=== PATIENT | female | born 1995 | race Caucasian/White ===

== ENCOUNTER → 2020-10-06 | Outpatient (CLI) | payer OTHER | LOC: KOH-I 16:30 | DX: I07.9 Rheumatic tricuspid valve disease, unspecified (principal); I26.99 Other pulmonary embolism without acute cor pulmonale; R91.8 Other nonspecific abnormal finding of lung field; J90 Pleural effusion, not elsewhere classified | CPT/HCPCS: 71250 ==

== ENCOUNTER → 2020-10-26 | Outpatient (CLI) | payer OTHER ==
[2020-10-26 18:01] LABS: HEMOGLOBIN 15.3 gm/dl (12.3-15.3); RED BLOOD COUNT 5.39 M/UL (4.00-5.10); WHITE BLOOD COUNT 9.5 K/UL (4.5-11.0)
[2020-10-26 18:16] LABS: BUN/CREATININE RATIO 14 (0-10)
== END ==
LOC: LAB 17:08
PROVIDERS: Hospitalist
DX: N28.9 Disorder of kidney and ureter, unspecified (principal)
CPT/HCPCS: 80069; 81001; 82570; 84156; 85027

== ENCOUNTER → 2020-12-08 | Outpatient (CLI) | payer OTHER ==
[2020-12-08 12:54] LABS: HEMOGLOBIN 17.4 gm/dl (12.3-15.3); RED BLOOD COUNT 5.99 M/UL (4.00-5.10); WHITE BLOOD COUNT 7.4 K/UL (4.5-11.0)
[2020-12-08 13:16] LABS: BUN/CREATININE RATIO 12 (0-10)
== END ==
LOC: LAB 12:16
PROVIDERS: Internal Medicine Nephrology
DX: N28.9 Disorder of kidney and ureter, unspecified (principal)
CPT/HCPCS: 80069; 81001; 82570; 84156; 85027

== ENCOUNTER → 2020-12-17 | Outpatient (CLI) | payer OTHER ==
[2020-12-17 11:36] LABS: BUN/CREATININE RATIO 19 (0-10)
[2020-12-17 11:42] LABS: HEMOGLOBIN 16.3 gm/dl (12.3-15.3); RED BLOOD COUNT 5.55 M/UL (4.00-5.10)
== END ==
LOC: LAB 10:32
PROVIDERS: Family Medicine
DX: K74.60 Unspecified cirrhosis of liver (principal)
CPT/HCPCS: 36415; 80053; 82607; 82746; 83921; 84443; 85027

== ENCOUNTER → 2021-01-14 | Outpatient (CLI) | payer OTHER ==
[2021-01-15 08:14] LABS: ALPHA-1-ANTITRYPSIN, SERUM 171 mg/dL (100-188)
[2021-01-15 11:15] LABS: HBSAG SCREEN Negative (Negative); HEP A AB, IGM Negative (Negative); HEP B CORE AB, IGM Negative (Negative); HEP C VIRUS AB <0.1 (0.0-0.9)
[2021-01-15 14:12] LABS: MITOCHONDRIAL (M2) ANTIBODY <20.0 Units (0.0-20.0)
== END ==
LOC: OPSV 09:35
PROVIDERS: Internal Medicine Gastroenterology
DX: K74.60 Unspecified cirrhosis of liver (principal); R18.8 Other ascites
CPT/HCPCS: 36415; 80074; 80076; 82103; 82728; 83540; 83550; 86038; C1729; P9047

== ENCOUNTER → 2021-04-13 | Outpatient (CLI) | payer OTHER | LOC: EXRD 04-08 09:00 | DX: R18.8 Other ascites (principal); K74.60 Unspecified cirrhosis of liver; R16.1 Splenomegaly, not elsewhere classified | CPT/HCPCS: 76705 ==

== ENCOUNTER → 2021-10-19 | Outpatient (CLI) | payer OTHER | LOC: HEART 5 10:30 | DX: Z95.4 Presence of other heart-valve replacement (principal); I08.3 Combined rheumatic disorders of mitral, aortic and tricuspid valves | CPT/HCPCS: 93306 ==

== ENCOUNTER 2021-11-28 18:05 | Emergency (ER) | payer OTHER ==
[2021-11-28 20:08] LABS: HEMOGLOBIN 14.9 gm/dl (12.3-15.3); RED BLOOD COUNT 5.11 M/UL (4.00-5.10); WHITE BLOOD COUNT 9.1 K/UL (4.5-11.0)
[2021-11-28 20:47] LABS: BUN/CREATININE RATIO 20 (0-10)
== END 2021-11-28 22:10 | disposition home or self-care (01) ==
LOC: ER1 18:05
PROVIDERS: Physician Assistant
DX: R53.83 Other fatigue (principal); F17.290 Nicotine dependence, other tobacco product, uncomplicated; I10 Essential (primary) hypertension; Z20.822 Contact with and (suspected) exposure to COVID-19
CPT/HCPCS: 0240U; 71045; 80053; 80307; 82550; 82553; 83735; 83880; 84439; 84443; 84484; 85025; 85610; 85652; 85730; 86140; 99283

== ENCOUNTER → 2022-01-03 | Outpatient (CLI) | payer OTHER ==
[2022-01-03 16:40] LABS: RED BLOOD COUNT 4.77 M/UL (4.00-5.10); WHITE BLOOD COUNT 10.1 K/UL (4.5-11.0)
== END ==
LOC: LAB 16:12
PROVIDERS: Internal Medicine Gastroenterology
DX: R94.5 Abnormal results of liver function studies (principal)
CPT/HCPCS: 36415; 80076; 85027

== ENCOUNTER → 2022-01-12 | Day surgery (SDC) | payer OTHER ==
[~2022-01-12] MED LIST: ASPIRIN CHEWABL81 MG PO; LOPRESSOR 25 MG25 MG PO; PROTONIX 40 MG40 M1 PO; ROPINIROLE HCL1 MG PO; SERTRALINE HCL100 MG PO; WELLBUTRIN SR150 M1 PO
== END | disposition home or self-care (01) ==
LOC: OR 07:04
DX: K29.51 Unspecified chronic gastritis with bleeding (principal); K74.69 Other cirrhosis of liver; K25.4 Chronic or unspecified gastric ulcer with hemorrhage; K80.80 Other cholelithiasis without obstruction; R18.8 Other ascites; E66.3 Overweight; I10 Essential (primary) hypertension; R19.7 Diarrhea, unspecified; K59.00 Constipation, unspecified; Z88.2 Allergy status to sulfonamides; Z87.891 Personal history of nicotine dependence; Z68.31 Body mass index [BMI] 31.0-31.9, adult
CPT/HCPCS: 84703; J0290; J1580; J2704; J7040